=== PATIENT | male | born 1955 | race Caucasian/White ===

== ENCOUNTER 2022-06-08 06:20 | Day surgery (SDC) | payer MEDICARE, OTHER, SELFPAY ==
[2022-06-04 10:36] VITALS: BMI 28.7
--- NOTE | 2022-06-07 09:14 | HO.ANESPROP2 ---
Documented by User: Brenda Peterson NP 06/07/22 11:50 HPI - Anesthesia Eval Consult details Narrative: 66yo M for Colonoscopy T/C with pt 06/07/22 CAD with stent 2006. Follows Dr Hugo yearly, last saw about 3 months ago . No CP/SOB. No recent cardiac testing. [facility] Past Medical History Medical History (Updated 06/04/22 @ 10:32 by Alesha Leger, RN) CAD (coronary artery disease) Diabetes mellitus GERD (gastroesophageal reflux disease) Gout HTN (hypertension) Hyperlipemia Surgical History Surgical History (Updated 06/04/22 @ 10:33 by Alesha Leger RN) History of esophagogastroduodenoscopy (EGD) Hx of colonoscopy Stented coronary artery Social History Social History Patient Tobacco Use Status: Never used Tobacco Are you DNR?: No Advance Directives: No Advance Directives Information Provided: Yes Recently lost weight without trying: No Nutrition Risks: No Nutritional Risk Meds Allergies Allergy/AdvReac Type Severity Reaction Status Date / Time No Known Allergies Allergy Verified 06/07/22 09:18 Home Medications Medication Instructions Recorded Confirmed Last Taken Type atenolol 100 mg tablet 100 mg PO DAILY 06/04/22 06/04/22 06/08/22 History glimepiride 1 mg tablet 1 mg PO DAILY 06/04/22 06/04/22 05/18/22 History lisinopril 20 mg tablet 20 mg PO DAILY 06/04/22 06/04/22 06/08/22 History nitroglycerin 0.4 mg sublingual 0.4 mg sublingual Q5M PRN Chest 06/04/22 06/04/22 Unknown History tablet Pain omeprazole 40 mg capsule,delayed 40 mg PO DAILY 06/04/22 06/04/22 06/07/22 History release simvastatin 20 mg tablet 20 mg PO BEDTIME 06/04/22 06/04/22 06/07/22 History Exam Exam Date and Time: June 07, [id number] Height,Weight and Vital Signs: Height 5 ft 10.5 in Weight 92.079 kg Assessment and Plan Assessment Anesthesia Assessment: Chart Reviewed Documented by User: Maddy Brothers MD 06/08/22 07:34 PMFSH Active Problems Active Problems: Denies recent chest pain. Only on baby aspirin for stent Cardiac Stent x 1 2006 Past Medical History Medical History (Updated 06/04/22 @ 10:32 by Alesha Leger RN) CAD (coronary artery disease) Diabetes mellitus GERD (gastroesophageal reflux disease) Gout HTN (hypertension) Hyperlipemia Family History Family history of problems with anesthesia: No Surgical History Surgical History (Updated 06/04/22 @ 10:33 by Alesha Leger RN) History of esophagogastroduodenoscopy (EGD) Hx of colonoscopy Stented coronary artery History of Problems with Anesthesia: No Social History Social History Patient Tobacco Use Status: Never used Tobacco Are you DNR?: No Advance Directives: No Advance Directives Information Provided: Yes Recently lost weight without trying: No Nutrition Risks: No Nutritional Risk Meds Allergies Allergy/AdvReac Type Severity Reaction Status Date / Time No Known Allergies Allergy Verified 06/07/22 09:18 Home Medications Medication Instructions Recorded Confirmed Last Taken Type atenolol 100 mg tablet 100 mg PO DAILY 06/04/22 06/04/22 06/08/22 History glimepiride 1 mg tablet 1 mg PO DAILY 06/04/22 06/04/22 05/18/22 History lisinopril 20 mg tablet 20 mg PO DAILY 06/04/22 06/04/22 06/08/22 History nitroglycerin 0.4 mg sublingual 0.4 mg sublingual Q5M PRN Chest 06/04/22 06/04/22 Unknown History tablet Pain omeprazole 40 mg capsule,delayed 40 mg PO DAILY 06/04/22 06/04/22 06/07/22 History release simvastatin 20 mg tablet 20 mg PO BEDTIME 06/04/22 06/04/22 06/07/22 History Exam Height,Weight and Vital Signs: Height 5 ft 10.5 in Weight 92.079 kg Vital Signs Temp Pulse Resp BP Pulse Ox O2 Del Method 06/08/22 06:26 97.9 F 66 18 148/76 H 97 Room Air Pertinent Lab Results Pertinent Lab Results: Lab Results 06/08/22 Range/Units 06:37 POC Glucose 133 H (60-115) mg/dL Airway Mallampati Class: III TM Dist: >3cm Neck ROM: Full Denture: Upper and Lower Heart: RRR Lungs: CTAB Assessment and Plan Assessment Anesthesia Assessment: Anesthesia Plan Discussed Final Anesthetic Review Family History of Problems with Anesthesia: No History of Problems with Anesthesia: No NPO: Yes ASA Class: III Final Preanesthetic Review: No Changes in Pt Med Stat, Meds/Allgs Chart Reviewed, Consent Obtained/Reviewed and Anes Risks/Benef Reviewed Patient Risk: Intermediate Procedure Risk: Low Assessment/Block/Sedation in SS: Assess/Block/Sedation-SS Anesthetic Plan Anesthetic Plan: MAC: Disposition: Standard PACU
[2022-06-08 06:26] VITALS: BP 148/76; PULSE 66; RESP 18; TEMP 36.6; O2SAT 97
[2022-06-08 06:42] LABS: Glucose, Whole Blood 133 mg/dL (60-115)
[2022-06-08] MEDS: Lactated Ringers 1,000 ML 100 ML IVCONT (06:55)
--- NOTE | 2022-06-08 07:30 | MHC.SHP ---
Pre-Procedural Eval Section A Date of Service: 06/08/22 Section B Chief Complaint: screening Details of Present Illness: See H*P no changes Relevant Family History (Specify if Yes): No Relevant Social History: None Present Medications: see Short Stay Collaborative assessment Medical History: No relevant PMH History of Previous Operations: Relevant previous surgery/procedure and date(s) Allergies: Allergies Allergy/AdvReac Type Severity Reaction Status Date / Time No Known Allergies Allergy Verified 06/07/22 09:18 Review of Systems Sugical H&P ROS: Negative: Constitution, Cardiovascular, Respiratory, Neurological, Psychiatric, Hem-Onc, Allergic/Immunologic, Gastrointestinal, Genitourinary, Musculoskeletal, Integumentary, Endocrine and Eyes/Ears/Nose/Throat Exam Surgical H&P Exam: Normal: HEENT, Normal: Heart, Normal: Lungs, Normal: Extremities, Normal: Abdomen, Normal: Skin and Normal: Neurological Plan Diagnosis/Plan: Unchanged I have reviewed the history and physical and performed a pertinent physical examination on my patient. No changes have occurred unless specified.
[2022-06-08 08:09] VITALS: BP 128/57; PULSE 68; RESP 14; TEMP 36.7; O2SAT 97
--- NOTE | 2022-06-08 08:12 | PM.OP ---
Brief Operative Note Date of Service: 06/08/22 Surgeon: Paolo Jeffers Anesthesia: MAC Was an Veneer Drier Tailer used for this Procedure?: No Estimated blood loss (mL): 2 Pathology: other Condition: stable Disposition: PACU
[2022-06-08 08:24] VITALS: BP 149/60; PULSE 63; RESP 16; O2SAT 98
[2022-06-08 08:39] VITALS: BP 149/68; PULSE 65; RESP 16; TEMP 36.7; O2SAT 99
--- NOTE | 2022-06-08 09:10 | OP_ITS ---
SURGEON: Paolo Jeffers MD INDICATIONS: Colon cancer screening and prior history of adenomatous colon polyps. PREOPERATIVE DIAGNOSIS: POSTOPERATIVE DIAGNOSIS: PROCEDURE PERFORMED: Colonoscopy to the terminal ileum with biopsy and snare polypectomy. ESTIMATED BLOOD LOSS: COMPLICATIONS: ANESTHESIA: ASSISTANTS: SPECIMENS: MEDICATIONS: Monitored anesthesia care. DESCRIPTION OF PROCEDURE: A history and physical performed. The risks and benefits of the procedure were explained to the patient. Informed consent was obtained. The patient was placed in the left lateral decubitus position. A digital rectal exam was performed and was found to be normal. The Olympus pediatric video colonoscope was introduced into the rectum and advanced to the cecum without difficulty. The cecum was identified by transillumination, palpation, and identification of ileocecal valve. Examination was performed. The scope was removed. He tolerated the procedure well and was taken to recovery in stable condition. The procedure was performed on June 08, 2022. FINDINGS: The terminal ileum was normal. Four polyps were identified and removed using a combination of hot snare polypectomy and biopsy forceps. All were less than 10 mm. These were located in the right colon 65 cm, 40 cm into the rectum. There was moderate sigmoid diverticulosis. There was some stool coating mucosa throughout the colon. This was washed and suctioned as best possible, but did limit the exam slightly for detection of small polyps. Retroflexed examination was normal. IMPRESSION: Colon polyps. RECOMMENDATION: Follow up the biopsy results. MD OSMANI Umana/GARRY / [id number]
== END 2022-06-08 09:05 | disposition home or self-care (01) ==
PROVIDERS: Visit Provider Internal Medicine Gastroenterology
PROC: 0DJD8ZZ Inspection of Lower Intestinal Tract, Via Natural or Artificial Opening Endoscopic (ICD-10-PCS; CPT 45378; principal; 2022-06-08 07:30)
DX: Z12.11 Encounter for screening for malignant neoplasm of colon (principal); D12.2 Benign neoplasm of ascending colon; D12.4 Benign neoplasm of descending colon; D12.5 Benign neoplasm of sigmoid colon; K62.1 Rectal polyp; I25.10 Atherosclerotic heart disease of native coronary artery without angina pectoris; Z98.61 Coronary angioplasty status; I10 Essential (primary) hypertension; E11.9 Type 2 diabetes mellitus without complications; K21.9 Gastro-esophageal reflux disease without esophagitis; M10.9 Gout, unspecified; E78.5 Hyperlipidemia, unspecified; Z79.84 Long term (current) use of oral hypoglycemic drugs; Z79.899 Other long term (current) drug therapy
CPT/HCPCS: 45385; 45380; 82947; 88305

== ENCOUNTER 2023-08-21 11:52 | Day surgery (SDC) | payer MEDICARE, OTHER, SELFPAY ==
[2023-08-19 15:06] VITALS: BMI 30.4
--- NOTE | 2023-08-20 11:03 | HO.ANESPROP2 ---
Documented by User: Brenda Peterson NP 08/20/23 11:42 HPI - Anesthesia Eval Consult details Narrative: 67yo M for Upper Endoscopy ETOH Cirrhosis. Per GI H&P, mild ascites, hyponatremic. Labs from December with low plts. CAD s/p stent 2006 (no asa d/t low plt count), afib (No OAC). Follows [facility] cardiology. Last office visit 05/2023 [facility] Past Medical History Medical History (Updated 08/19/23 @ 14:49 by Shanta Gilliland RN) Cirrhosis Afib Gout CAD (coronary artery disease) Hyperlipemia HTN (hypertension) Diabetes mellitus GERD (gastroesophageal reflux disease) Family History Family history of problems with anesthesia: No Surgical History Surgical History (Updated 08/19/23 @ 14:48 by Shanta Gilliland RN) Stented coronary artery Hx of colonoscopy History of esophagogastroduodenoscopy (EGD) History of Problems with Anesthesia: No Social History Social History Patient Tobacco Use Status: Never used Tobacco Meds Allergies Allergy/AdvReac Type Severity Reaction Status Date / Time No Known Allergies Allergy Verified 06/07/22 09:18 Home Medications Medication Instructions Recorded Confirmed Last Taken Type atenolol 100 mg tablet 100 mg PO DAILY 06/04/22 08/19/23 06/08/22 History glimepiride 1 mg tablet 1 mg PO DAILY 06/04/22 08/19/23 05/18/22 History lisinopril 20 mg tablet 20 mg PO DAILY 06/04/22 08/19/23 06/08/22 History nitroglycerin 0.4 mg sublingual 0.4 mg sublingual Q5M PRN Chest 06/04/22 08/19/23 Unknown History tablet Pain omeprazole 40 mg capsule,delayed 40 mg PO DAILY 06/04/22 08/19/23 06/07/22 History release simvastatin 20 mg tablet 20 mg PO BEDTIME 06/04/22 08/19/23 06/07/22 History allopurinol 100 mg tablet 100 mg PO DAILY 08/19/23 08/19/23 Unknown History cholecalciferol (vitamin D3) 125 250 mcg PO DAILY 08/19/23 08/19/23 Unknown History mcg (5,000 unit) tablet (Vitamin D3) indomethacin 50 mg capsule 50 mg PO DAILY PRN gout pain 08/19/23 08/19/23 Unknown History torsemide 20 mg tablet 40 mg PO BID 08/19/23 08/19/23 Unknown History vitamin B complex-vitamin C-folic 1 tab PO DAILY 08/19/23 08/19/23 Unknown History acid 0.8 mg tablet Exam Height,Weight and Vital Signs: Height 5 ft 10.5 in Weight 97.522 kg Narrative Narrative: EKG in ED 03/2023 afib with rvr @ 105 Mod volt criteria for LVH, may be nml variant NM Stress 10/2022 No evidence of myocardial ischemia or previous myocardial infarct Nml LV size and funtion ECHO 03/2023 LV chamber size is nml Mild concentric LVH EF 55-65% RV is nml in size and function No significant valve disease Assessment and Plan Assessment Anesthesia Assessment: Chart Reviewed Final Anesthetic Review Family History of Problems with Anesthesia: No History of Problems with Anesthesia: No Documented by User: Prabhjot Mendoza MD 08/21/23 13:52 [facility] Past Medical History Medical History (Updated 08/19/23 @ 14:49 by Shanta Gilliland RN) Cirrhosis Afib Gout CAD (coronary artery disease) Hyperlipemia HTN (hypertension) Diabetes mellitus GERD (gastroesophageal reflux disease) Surgical History Surgical History (Updated 08/19/23 @ 14:48 by Shanta Gilliland RN) Stented coronary artery Hx of colonoscopy History of esophagogastroduodenoscopy (EGD) Social History Social History Patient Tobacco Use Status: Never used Tobacco Meds Allergies Allergy/AdvReac Type Severity Reaction Status Date / Time No Known Allergies Allergy Verified 06/07/22 09:18 Home Medications Medication Instructions Recorded Confirmed Last Taken Type atenolol 100 mg tablet 100 mg PO DAILY 06/04/22 08/19/23 06/08/22 History glimepiride 1 mg tablet 1 mg PO DAILY 06/04/22 08/19/23 05/18/22 History lisinopril 20 mg tablet 20 mg PO DAILY 06/04/22 08/19/23 06/08/22 History nitroglycerin 0.4 mg sublingual 0.4 mg sublingual Q5M PRN Chest 06/04/22 08/19/23 Unknown History tablet Pain omeprazole 40 mg capsule,delayed 40 mg PO DAILY 06/04/22 08/19/23 06/07/22 History release simvastatin 20 mg tablet 20 mg PO BEDTIME 06/04/22 08/19/23 06/07/22 History allopurinol 100 mg tablet 100 mg PO DAILY 08/19/23 08/19/23 Unknown History cholecalciferol (vitamin D3) 125 250 mcg PO DAILY 08/19/23 08/19/23 Unknown History mcg (5,000 unit) tablet (Vitamin D3) indomethacin 50 mg capsule 50 mg PO DAILY PRN gout pain 08/19/23 08/19/23 Unknown History torsemide 20 mg tablet 40 mg PO BID 08/19/23 08/19/23 Unknown History vitamin B complex-vitamin C-folic 1 tab PO DAILY 08/19/23 08/19/23 Unknown History acid 0.8 mg tablet Exam Pertinent Lab Results Pertinent Lab Results: Reviewed Airway Mallampati Class: I TM Dist: >3cm Neck ROM: Full Denture: Upper and Lower Heart: ok Lungs: ok Assessment and Plan Assessment Anesthesia Assessment: Anesthesia Plan Discussed Final Anesthetic Review NPO: Yes ASA Class: III Final Preanesthetic Review: No Changes in Pt Med Stat, Meds/Allgs Chart Reviewed, Consent Obtained/Reviewed and Anes Risks/Benef Reviewed Patient Risk: High Procedure Risk: Intermediate Anesthetic Plan Anesthetic Plan: MAC: and Agree w/ Assess. and Plan Disposition: Standard PACU
[2023-08-21 13:02] LABS: Hematocrit 32.9 % (42.0-52.0); Hemoglobin 11.1 g/dl (14.0-18.0); Mean Corpuscular HGB Conc 33.7 g/dl (31.0-36.0); Mean Corpuscular Hemoglobin 30.7 pg (27.0-33.0); Mean Corpuscular Volume 90.9 fL (80.0-98.0); Mean Platelet Volume 11.7 fL (9.4-12.4); Red Blood Count 3.62 X10*6/uL (4.60-5.80); Red Cell Distribution Width 21.2 % (11.0-16.0); White Blood Count 4.3 X10*3/uL (4.8-10.8)
[2023-08-21 13:03] LABS: INTERNATIONAL NORM RATIO 1.3 (0.9-1.1); Prothrombin Time 15.4 SEC (11.1-13.3)
[2023-08-21 13:05] VITALS: BP 141/62; PULSE 57; RESP 16; TEMP 36.8; O2SAT 96
[2023-08-21] MEDS: Lactated Ringers 1,000 ML 100 ML IVCONT (13:06)
[2023-08-21 13:09] LABS: Alanine Aminotransferase 24 U/L (0-40); Alkaline Phosphatase 122 U/L (39-117); Anion Gap 12 (12-20); Aspartate Amino Transferase 41 U/L (5-37); Bilirubin Total 2.4 mg/dL (0.0-1.0); Blood Urea Nitrogen 11 mg/dL (9-16); Calcium 8.8 mg/dL (8.4-10.2); Carbon Dioxide 29 mmol/L (22-29); Chloride 102 mmol/L (96-108); Creatinine Clr Calc Pharmacy 99.7; Estimated Glomerular Filt Rate > 60; Glucose Fasting 129 mg/dL (60-99); Potassium 3.7 mmol/L (3.3-5.1); Sodium 139 mmol/L (135-145)
[2023-08-21 13:09] LABS: Glucose, Whole Blood 118 mg/dL (60-115)
[2023-08-21 13:14] LABS: Platelet Count 59 X10*3/uL (160-400)
--- NOTE | 2023-08-21 13:45 | MHC.SHP ---
Pre-Procedural Eval Section A Date of Service: 08/21/23 The patient is an INPATIENT: No Changes since office visit: No Cold of Flu in the past 2 weeks, No New Medical Problems, No Changes in Medication and No Patient answered all questions The History & Physical has been completed within 30 days and I have reviewed it.: Yes Section B Chief Complaint: Unspecified cirrhosis of liver Allergies: Allergies Allergy/AdvReac Type Severity Reaction Status Date / Time No Known Allergies Allergy Verified 06/07/22 09:18 Plan I have reviewed the history and physical and performed a pertinent physical examination on my patient. No changes have occurred unless specified. Time Spent With Patient Time: Total time managing care of this patient today ____ minutes.
[2023-08-21 14:19] VITALS: BP 126/55; PULSE 57; RESP 18; TEMP 36.4; O2SAT 98
[2023-08-21 14:50] VITALS: BP 112/62; PULSE 57; RESP 18; TEMP 36.4; O2SAT 100
--- NOTE | 2023-08-21 18:33 | OP_ITS ---
DATE OF SERVICE: 08/21/2023 SURGEON: Paolo Jeffers MD INDICATIONS: Cirrhosis. PREOPERATIVE DIAGNOSIS: POSTOPERATIVE DIAGNOSIS: PROCEDURE PERFORMED: Upper endoscopy with biopsy. ESTIMATED BLOOD LOSS: COMPLICATIONS: ANESTHESIA: Monitored anesthesia care. ASSISTANTS: SPECIMENS: DESCRIPTION OF PROCEDURE: A history and physical were performed. The risks and benefits of the procedure were explained to the patient. Informed consent was obtained. The patient was placed in the left lateral decubitus position. The Olympus video gastroscope was introduced into the esophagus, stomach, and duodenum. Examination was performed, and the scope was removed. He tolerated the procedure well and was returned to recovery in stable condition. FINDINGS: 1. Esophagus. The esophagus showed 3 chains of grade 1-2 varices extending from the EG junction at 42 cm up to about 32 cm. There were no stigmata of recent hemorrhage. 2. Stomach. Stomach showed very mild changes of portal hypertensive gastropathy. There was slight cobblestoning. No bleeding was identified. Biopsies were obtained from the antrum. 3. Duodenum, the bulb and second portion were normal. IMPRESSION: 1. Esophageal varices. 2. Portal hypertensive gastropathy. RECOMMENDATIONS: 1. Follow up the biopsy results. 2. Followup office visit. MD OSMANI Umana/GARRY / [id number]
== END 2023-08-21 15:44 | disposition home or self-care (01) ==
PROVIDERS: Nurse Practitioner; PCP Internal Medicine; Visit Provider Internal Medicine Gastroenterology
PROC: 0DJ08ZZ Inspection of Upper Intestinal Tract, Via Natural or Artificial Opening Endoscopic (ICD-10-PCS; CPT 43235; principal; 2023-08-21 13:50)
DX: K74.60 Unspecified cirrhosis of liver (principal); R18.8 Other ascites; I85.10 Secondary esophageal varices without bleeding; K76.6 Portal hypertension; K31.89 Other diseases of stomach and duodenum; D64.9 Anemia, unspecified; E11.9 Type 2 diabetes mellitus without complications; I10 Essential (primary) hypertension; I48.91 Unspecified atrial fibrillation; E78.5 Hyperlipidemia, unspecified; I25.10 Atherosclerotic heart disease of native coronary artery without angina pectoris; Z95.5 Presence of coronary angioplasty implant and graft; M10.9 Gout, unspecified; E87.1 Hypo-osmolality and hyponatremia; Z79.82 Long term (current) use of aspirin; Z79.84 Long term (current) use of oral hypoglycemic drugs; Z79.899 Other long term (current) drug therapy
CPT/HCPCS: 43239; 36415; 80053; 82947; 85027; 85610; 88305; 88342; J2704

== ENCOUNTER 2024-06-18 16:32 | Outpatient (REF) | payer MEDICARE, OTHER, SELFPAY ==
[2024-06-18 17:03] LABS: Hematocrit 30.4 % (42.0-52.0); Hemoglobin 10.9 g/dl (14.0-18.0); Mean Corpuscular HGB Conc 35.9 g/dl (31.0-36.0); Mean Corpuscular Hemoglobin 36.1 pg (27.0-33.0); Mean Corpuscular Volume 100.7 fL (80.0-98.0); Mean Platelet Volume 10.3 fL (9.4-12.4); Red Blood Count 3.02 X10*6/uL (4.60-5.80); Red Cell Distribution Width 13.7 % (11.0-16.0); White Blood Count 4.6 X10*3/uL (4.8-10.8)
[2024-06-18 17:08] LABS: INTERNATIONAL NORM RATIO 1.2 (0.9-1.1); Prothrombin Time 14.5 SEC (10.9-12.4)
[2024-06-18 17:20] LABS: Alanine Aminotransferase 19 U/L (0-40); Albumin Level 3.3 g/dL (3.5-5.0); Alkaline Phosphatase 128 U/L (39-117); Aspartate Amino Transferase 36 U/L (5-37); Bilirubin Direct 0.8 mg/dL (0.0-0.5); Bilirubin Total 2.1 mg/dL (0.0-1.0); Platelet Count 63 X10*3/uL (160-400); Total Protein 6.7 g/dL (6.5-8.0)
[2024-06-25 02:23] LABS: FIB-ALT 17 U/L (9-46); FIB-Alpha-2-Macroglobulin 263 mg/dL (106-279); FIB-Apolipoprotein A1 138 mg/dL (94-176); FIB-GGT 73 U/L (3-70); FIB-Haptoglobin <8 mg/dL (43-212); FIB-Total Bilirubin 1.9 mg/dL (0.2-1.2); Liver Fibrosis Score 0.95; Liver Fibrosis Stage F4; Nec Inflam Act Grade A0; Nec Inflam Act Score 0.15; Reference ID 5156400
== END 2024-06-18 16:33 | disposition home or self-care (01) ==
LOC: HO.LAB 16:32
PROVIDERS: PCP Internal Medicine; Visit Provider Internal Medicine Gastroenterology
DX: K74.60 Unspecified cirrhosis of liver (principal); K21.9 Gastro-esophageal reflux disease without esophagitis
CPT/HCPCS: 36415; 80076; 81596; 85027; 85610

== ENCOUNTER 2025-05-18 07:23 | Day surgery (SDC) | payer MEDICARE, OTHER, SELFPAY ==
--- OUTSIDE RECORDS SUMMARY | 2025-04-06 10:21 | XMS_ITS | Patient Health Record ---
Author Organization [facility] Address [address] [place] [address] Care Team Providers Care Procurement Services Manager Name Role Phone Rosi DOMINGUEZ, Netta Primary Care Provider Paolo Lynn Jr Unavailable Paolo Jeffers Unavailable Unavailable Allergies No Known Allergies Results Component Value Reference Range Notes Liver Fibrosis Pnl Reviewed date:06/26/2024 07:37:17 AM Interpretation: Performing Lab:[facility], [address] [place] [phone] Notes/Report: Liver Fibrosis Score 0.95 Liver Fibrosis Stage F4 Liver Fibrosis Interpretation SEE NOTE severe fibrosis Fibro Test Score (f) Metavir Score f>=0 and f<=0.21 : F0 (no fibrosis) f>0.21 and f<=0.27 : F0-F1 (no fibrosis) f>0.27 and f<=0.31 : F1 (minimal fibrosis) f>0.31 and f<=0.48 : F1-F2 (minimal fibrosis) f>0.48 and f<=0.58 : F2 (moderate fibrosis) f>0.58 and f<=0.72 : F3 (advanced fibrosis) f>0.72 and f<=0.74 : F3-F4 (advanced fibrosis) f>0.74 and f<=1.00 : F4 (severe fibrosis) Nec Inflam Act Score 0.15 Nec Inflam Act Grade A0 Nec Inflam Act Interpretation SEE NOTE no activity ActiTest Score (a) Metavir Score a>=0 and a<=0.17 : A0 (no activity) a>0.17 and a<=0.29 : A0-A1 (no activity) a>0.29 and a<=0.36 : A1 (minimal activity) a>0.36 and a<=0.52 : A1-A2 (minimal activity) a>0.52 and a<=0.60 : A2 (significant activity) a>0.60 and a<=0.62 : A2-A3 (significant activity) a>0.62 and a<=1.00 : A3 (severe activity) XSR-Msaap-2-Macroglobulin 263 106-279 mg/dL FIB-Haptoglobin <8 43-212 mg/dL Check if haemolysis as bilirubin is high and haptoglobin low. FIB-Apolipoprotein A1 138 94-176 mg/dL FIB-Total Bilirubin 1.9 0.2-1.2 mg/dL Check if haemolysis as bilirubin is high and haptoglobin low. FIB-GGT 73 3-70 U/L FIB-ALT 17 9-46 U/L Reference ID [id number] Footnote SEE NOTE The reliability of results is dependent on compliance with the preanalytical and analytical conditions recommended by [employer]. The tests have to be deferred for: acute hemolysis, acute hepatitis, acute inflammation, extra hepatic cholestasis. The advice of a specialist should be sought for interpretation in chronic hemolysis and Gilbert's syndrome. The test interpretation is not validated in liver transplant patients. Isolated extreme values of one of the components should lead to caution in interpreting the results. In case of discordance between a biopsy result and a test, it is recommended to seek the advice of a specialist. The causes of these discordances could be due to a flaw of the test or to a flaw in the biopsy: i.e. a liver biopsy has a 33% variability rate for one fibrosis stage. FibroTest is interpretable for chronic hepatitis B and C, alcoholic and non alcoholic steatosis. ActiTest is interpretable for chronic hepatitis B and C. The performance characteristics have been determined by [facility]. It has not been cleared or approved by the U.S. Food and Drug Administration. Performance characteristics refer to the analytical performance of the test. [employer], the associated logo, [employer] and all associated [employer] concepcion are the registered trademarks of [employer]. All third green party concepcion - (R) and (TM) - are the property of their respective owners. (C) 0909-0860 [employer]. All rights reserved. THIS TEST WAS PERFORMED AT: [employer]/[facility] [address] [place] [address] SAMY ALVARES MD,PHD,TAMIE Complete Blood Count no Diff Reviewed date:06/26/2024 07:34:08 AM Interpretation: Performing Lab:[facility], [address] [place] [phone] Notes/Report: White Blood Count 4.6 4.8-10.8 X10*3/uL Red Blood Count 3.02 4.60-5.80 X10*6/uL Hemoglobin 10.9 14.0-18.0 g/dl Hematocrit 30.4 42.0-52.0 % Mean Corpuscular Volume 100.7 80.0-98.0 fL Mean Corpuscular Hemoglobin 36.1 27.0-33.0 pg Mean Corpuscular HGB Conc 35.9 31.0-36.0 g/dl Red Cell Distribution Width 13.7 11.0-16.0 % Platelet Count 63 160-400 X10*3/uL Mean Platelet Volume 10.3 9.4-12.4 fL NRBC Pct Auto 0.0 0.0-0.2 /100WBC NRBC Abs Auto 0.000 0.0-0.012 X10*3/uL Prothrombin Time INR Reviewed date:06/26/2024 07:36:43 AM Interpretation: Performing Lab:[facility], [address] [place] [phone] Notes/Report: Prothrombin Time 14.5 10.9-12.4 SEC INTERNATIONAL NORM RATIO 1.2 0.9-1.1 INTERNATIONAL NORMALIZED RATIO (INR) REFERENCE RANGES Reference Range For patients not on anticoagulant therapy: 0.9 - 1.1 INR ranges for oral anticoagulant therapy: For prevention and treatment of venous thrombosis and pulmonary embolism: 2.0 - 3.0 For acute myocardial infarction with aspirin therapy: 2.0 - 3.0 For acute myocardial infarction without aspirin therapy: 3.0 - 4.0 For patients with mechanical prosthetic heart valves: 2.5 - 3.5 Liver Panel Reviewed date:06/26/2024 07:36:34 AM Interpretation: Performing Lab:[facility], [address] [place] [phone] Notes/Report: Bilirubin Total 2.1 0.0-1.0 mg/dL Bilirubin Direct 0.8 0.0-0.5 mg/dL Aspartate Amino Transferase 36 5-37 U/L Alanine Aminotransferase 19 0-40 U/L Total Protein 6.7 6.5-8.0 g/dL Albumin Level 3.3 3.5-5.0 g/dL Alkaline Phosphatase 128 39-117 U/L Reason For Referral No Information Medications Medication SIG (Take, Route, Frequency, Duration) Notes Start Date End Date Status Folic Acid Xtra Acti ve Mounjaro 5 MG/0.5ML Subcutaneous for 84 Days Active Mounjaro 5 MG/0.5ML Subcutaneous for 84 Active Allopurinol 100 MG 1 tablet Orally Once a day for 30 day(s) Active Aspirin 81 81 MG 1 tablet Orally Once a day for 30 day(s) Active Cholecalciferol 250 MCG (12948 UT) as directed Orally Active Repatha SureClick 140 MG/ML Subcutaneous for 84 Days Active One Touch Delica Lancets Active Torsemide 20 MG Oral for 90 Days Active Hydrocortisone 10 MG 1 tablet with food or milk Orally every 12 hrs for 30 day(s) Active Atenolol 100 MG TAKE 1 TABLET BY AYANNA TH EVERY DAY Oral for 90 Active Magnesium Active OneTouch Verio - USE TO TEST 2 TIMES DAILY In Vitro for 50 Active Omeprazole 40 MG Oral for 90 A ctive Nitroglycerin 0.4 MG as directed Sublingual Active Indomethacin ER 75 MG 1 capsule with jose alfredo d Orally Once a day for 30 day(s) Active Torsemide 20 MG as directed Orally Active Lisinopril 20 MG TAKE 1 TABLET BY AYANNA TH EVERY DAY Oral for 90 Active Immunizations Vaccine Route Administration Date Status Comme nts Influenza Unknown 03/19/2022 Refused Influenza Unknown 07/29/2023 Refused Influenza Unknown 11/18/2023 Refused Social History Tobacco Use: Social History Observation Description Date Details (start date - stop date) Never Smoker NA - NA Tobacco Use/Smoking Question Answer Notes Patient is a nonsmoker AUDIT-C (Standard) Question Answer Notes Did you have a drink containing alcohol in the p ast year? No Points 0 Interpretation Negative Problems Problem Type SNOMED Code ICD Code Onset Dates Problem Status W/U Status Risk Notes Problem 067775302 Colon cancer screening (Z12.11) Active confirmed Problem Oesophageal varices without bleeding (90736746) Secondary esophageal varices without bleeding (I85.10) Active confirmed Problem 88829754 Unspecified cirrhosis of liver (K74.60) Active confirmed Problem Portal hypertension (51832060) Portal hypertension (K76.6) Active confirmed Problem 901070381 Other ascites (R18.8) Active confirmed Problem 923051196 Gastroesophageal reflux disease without esophagitis (K21.9) Active confirmed Problem Diverticulosis of colon (073397426) Diverticulosis of colon (K57.30) Active confirmed Problem Pancytopenia (D61.818) Active confirmed Vital Signs Temperature 97.1 degrees Fahrenheit 12/16/2024 Blood pressure diastolic 01 mm Hg 12/16/2024 Height 70.5 in 12/16/2024 Blood pressure systolic 001 mm Hg 12/16/2024 Weight 190.4 lbs 12/16/2024 BMI 26.93 kg/m2 12/16/2024 Encounters Encounter Location Date Provider Diagnosis [facility] [address] [place] [phone] 06/18/2024 Paolo Jeffers Jr Unspecified cirrhosis of liver K74.60 and Gastroesophageal reflux disease without esophagitis K21.9 [facility] [address] [place] [phone] 12/16/2024 Paolo Jeffers Jr Unspecified cirrhosis of liver K74.60 ; Secondary esophageal varices without bleeding I85.10 and Colon cancer screening Z12.11 [facility] [address] [place] [phone] 06/26/2024 Paolo Jeffers Jr [facility] [address] [place] [phone] 12/30/2024 Paolo Jeffers Jr [facility] [address] [place] [id number] 01/01/2025 Paolo Jeffers Jr Pancytopenia D61.818 [facility] [address] [place] [phone] 01/06/2025 Paolo Jeffers Jr Assessments Encounter Date Diagnosis (ICD Code) Assessment Notes Treatment Notes Treatment Clinical Notes Section Notes 06/18/2024 Unspecified cirrhosis of liver (ICD-10 - K74.60) Liver disease - resources material was printed We discussed cirrhosis today. We discussed gastroesophageal reflux disease today. We recommended he continue omeprazole. Followup laboratory testing of liver function tests and fibrosis testing will be arranged. Followup office visit in 6 months. 06/18/2024 Gastroesophageal reflux disease without esophagitis (ICD-10 - K21.9) We discussed cirrhosis today. We discussed gastroesophageal reflux disease today. We recommended he continue omeprazole. Followup laboratory testing of liver function tests and fibrosis testing will be arranged. Followup office visit in 6 months. 12/16/2024 Unspecified cirrhosis of liver (ICD-10 - K74.60) Liver disease - resources material was printed Currently, he is doing well. He will be due for follow-up colonoscopy and this will be arranged. He will have lab work to update his liver function tests, and ultrasound imaging for follow-up of his cirrhosis. Reflux symptoms are well-controlled on omeprazole 40 mg daily and this will be continued. Endoscopy for variceal surveillance will be arranged at the same time of his colonoscopy. He is aware of risks and benefits and agrees to proceed. He will stop indomethacin and aspirin 1 week before the procedures. 01/01/2025 Pancytopenia (ICD-10 - D61.818) 12/16/2024 Secondary esophageal varices without bleeding (ICD-10 - I85.10) Currently, he is doing well. He will be due for follow-up colonoscopy and this will be arranged. He will have lab work to update his liver function tests, and ultrasound imaging for follow-up of his cirrhosis. Reflux symptoms are well-controlled on omeprazole 40 mg daily and this will be continued. Endoscopy for variceal surveillance will be arranged at the same time of his colonoscopy. He is aware of risks and benefits and agrees to proceed. He will stop indomethacin and aspirin 1 week before the procedures. 12/16/2024 Colon cancer screening (ICD-10 - Z12.11) Currently, he is doing well. He will be due for follow-up colonoscopy and this will be arranged. He will have lab work to update his liver function tests, and ultrasound imaging for follow-up of his cirrhosis. Reflux symptoms are well-controlled on omeprazole 40 mg daily and this will be continued. Endoscopy for variceal surveillance will be arranged at the same time of his colonoscopy. He is aware of risks and benefits and agrees to proceed. He will stop indomethacin and aspirin 1 week before the procedures. Plan Of Treatment Pending Test Test Name Order Date LIVER PROFILE 06/18/2024 LIVER PROFILE 11/18/2023 LIVER PROFILE 07/29/2023 LIVER PROFILE 12/16/2024 IRON + IBC (FE) 01/01/2025 FERRITIN 01/01/2025 B12 01/01/2025 FOLATE 01/01/2025 CBC with MANUAL DIFFERENTIAL 11/18/2023 CBC w/o DIFF 07/29/2023 CBC w/o DIFF 12/16/2024 CBC w/o DIFF 06/18/2024 CBC w/o DIFF 01/01/2025 PROTHROMBIN TIME (PT, INR) 07/29/2023 PROTHROMBIN TIME (PT, INR) 12/16/2024 PROTHROMBIN TIME (PT, INR) 06/18/2024 PROTHROMBIN TIME (PT, INR) 11/18/2023 MITOCHONDRIAL AB 07/29/2023 SMOOTH MUSCLE ANTIBODIES 07/29/2023 US ABD 12/16/2024 Liver Fibrosis Pnl 11/18/2023 Liver Fibrosis Pnl 07/29/2023 ZAYDA Reflex Titer and Pattern 07/29/2023 Future Test Test Name Order Date COLONOSCOPY 03/19/2022 UPPER GI ENDOSCOPY 07/29/2023 US ABD 11/18/2023 UPPER GI ENDOSCOPY 12/16/2024 COLONOSCOPY 12/16/2024 Next Appt Details Provider Name:Paolo calzada Jr, 05/18/2025 08:20:00 AM, [address] [place] [address] , [place], [place], [id number], Insurance Providers Payer Name Payer Address Payer Phone Subscriber Number Group Number Insured Name Patient Relationship to Insured Coverage Start Date Coverage End Date MEDICARE OF [facility] [address] [place] [address] [id number] [phone] [id number] TUNG MILLAN Self - patient is the insured [facility] [address] [place] [phone] [id number] TUNG MILLAN Self - patient is the insured Medical (General) History Medical History History ICD Code Diabetes mellitus type 2 Hypertension Hyperlipidemia Coronary artery disease Gout Atrial fibrillation Hyponatremia Cirrhosis Surgical History Surgery Date(Month/Year) RCA stent 2006
--- OUTSIDE RECORDS SUMMARY | 2025-04-06 10:21 | XMS_ITS | Clinical Summary ---
Author Organization [facility] Address [address] [place] [address] Care Team Providers Care Associate Professor Of Surgery Name Role Phone Pcp, No Primary Care Provider [phone] Immunizations Name Administration Dates Next Due Fluzone Trivalent High Dose (65+ years) 08/28/20 22 Social History Tobacco Use Types Packs/Day Years Used Date Smoking Tobacco: Never Assessed Sex and Gender Information Value Date Recorded Sex Assigned at Not on file Legal Sex Male 9:21 AM EST Gender Identity Not on file Sexual Orientation Not on file Plan of Treatment Health Maintenance Due Date Last Done Comments Depression: Screening Annual ly using PHQ-2/9 in Adults 18 yrs or above (or HM Modifier)([facility]) 1972 Hepatitis C Virus Infection in Adolescents and Adults: Screening (or Modifier) ([facility]) 1972 SDAK Screening Reminder: Beata esposito for all adults ([facility]) 1972 Tobacco Smoking Cessation: i n Adults excluding Women: Behavioral and Pharmacotherapy Interventions ([facility]) 1972 DTaP/Tdap/Td Vaccines ([facility]) (1 - Tdap) 1973 Colorectal Cancer: FLEXIBLE SIGMOIDOSCOPY Screening every 5 yrs 1999 Colorectal Cancer: Fecal Imm unochemical Test (FIT) Annually [facility] 1999 Colorectal Cancer: High-sens itivity gFOBT Screening Annually [facility] 1999 Colorectal Cancer: Stool Col oguard Screening every 3 yrs 1999 Colorectal Cancer:CT Colonog ethan Screening every 5 yrs 1999 Pneumococcal Vaccination Scr eening: Patients 50+ yrs of age ([facility]) (1 of 1 - PCV) 2004 Zoster/Shingles Vaccine Seri es Screening: Adults aged 18+ yrs (or HM Modifiers)([facility]) (1 of 2) 2004 COVID-19 Vaccine Screening: Initial Series and Booster Status ([facility]) (2023- season) 2024 Flu Vaccination: Ages 65+: Y early High Dose Recommended (or Modifier)([facility]) 04/09/2025 08/28/2022 RSV Vaccines (1 - 1-dose 75+ series) 2029 Colorectal Cancer Screening 45 -75 Yrs (or HM Modifier) 06/08/2032 Colorectal Cancer: COLONOSCO PY Screening every 10 yrs (or Modifier) 06/08/2032 06/08/2022, 06/08/2022 Medical Devices Not on file Insurance MEDICARE [facility] Care Teams Associate Professor Of Surgery Relationship Specialty Start Date End Date Pcp, No PCP - General Family Medicine 08/28/22
[2025-05-14 14:43] VITALS: BMI 26.9
[2025-05-18 08:26] VITALS: BP 128/57; PULSE 67; RESP 16; TEMP 36.5; O2SAT 100
[2025-05-18 08:27] LABS: Glucose, Whole Blood 101 mg/dL (60-115)
[2025-05-18] MEDS: Lactated Ringers 1,000 ML 100 ML IVCONT (08:27)
--- NOTE | 2025-05-18 08:30 | HO.ANESPROP2 ---
Documented by User: Brenda Peterson NP 05/17/25 09:31 HPI - Anesthesia Eval Consult details Narrative: 69yo M for Upper Endoscopy and Colonoscopy ETOH Cirrhosis. Previous EGD 2022 with Grade 1&2 nonbleeding varices. Per GI note, no decompensation since last eval 06/2024. Torsemide Cardiac optimized. CAD s/p stent 2006 (asa 81mg), afib (No OAC). Follows [facility] cardiology. Last office visit 05/2023 Anesthesia Pre-Procedure Meds Is the patient on any of the following meds?: GLP1/DPP4 PMFSH Past Medical History Medical History Esophageal varices without bleeding Cirrhosis Afib Gout CAD (coronary artery disease) Hyperlipemia HTN (hypertension) Diabetes mellitus GERD (gastroesophageal reflux disease) Family History Family history of problems with anesthesia: No Surgical History Surgical History (Updated 08/19/23 @ 14:48 by Shanta Gilliland RN) Stented coronary artery Hx of colonoscopy History of esophagogastroduodenoscopy (EGD) History of Problems with Anesthesia: No Social History Social History Patient Tobacco Use Status: Never used Tobacco Use of substances other than those prescribed or required for medical reasons: No Advance Directives: No Advance Directives Information Provided: Yes Meds Allergies Allergy/AdvReac Type Severity Reaction Status Date / Time amlodipine Allergy Swelling Verified 05/14/25 14:48 doxycycline Allergy Unknown Verified 05/14/25 14:48 Home Medications ?Medication ?Instructions ?Recorded ?Confirmed ?Last Taken ?Type atenolol 100 mg tablet 100 mg PO DAILY 06/04/22 05/14/25 06/08/22 History lisinopril 20 mg tablet 20 mg PO DAILY 06/04/22 05/14/25 06/08/22 History nitroglycerin 0.4 mg sublingual 0.4 mg sublingual Q5M PRN Chest 06/04/22 05/14/25 Unknown History tablet Pain omeprazole 40 mg capsule,delayed 40 mg PO DAILY 06/04/22 05/14/25 06/07/22 History release allopurinol 100 mg tablet 100 mg PO DAILY 08/19/23 05/18/25 05/18/25 07:00 History cholecalciferol (vitamin D3) 125 250 mcg PO DAILY 08/19/23 05/14/25 Unknown History mcg (5,000 unit) tablet (Vitamin D3) indomethacin 50 mg capsule 75 mg PO DAILY PRN gout pain 08/19/23 05/14/25 Unknown History torsemide 20 mg tablet 20 mg PO BID 08/19/23 05/14/25 Unknown History aspirin 81 mg tablet,delayed 81 mg PO DAILY 05/14/25 05/14/25 Unknown History release evolocumab 140 mg/mL subcutaneous 140 mg subcut Q2W 05/14/25 05/14/25 Unknown History pen injector (Repnael Balick) folic acid 1 mg tablet 1 mg PO DAILY 05/14/25 05/14/25 Unknown History hydrocortisone 10 mg tablet 10 mg PO BID 05/14/25 05/14/25 Unknown History tirzepatide 7.5 mg/0.5 mL 7.5 mg subcut QWEEK 05/14/25 05/14/25 Unknown History subcutaneous pen injector (Mounjaro) Exam Height,Weight and Vital Signs: Height 5 ft 10.5 in Weight 86.183 kg Pertinent Lab Results Pertinent Lab Results: Narrative Narrative: EKG in ED 03/2023 afib with rvr @ 105 Mod volt criteria for LVH, may be nml variant NM Stress 10/2022 No evidence of myocardial ischemia or previous myocardial infarct Nml LV size and funtion ECHO 03/2023 LV chamber size is nml Mild concentric LVH EF 55-65% RV is nml in size and function No significant valve disease Assessment and Plan Assessment Anesthesia Assessment: Chart Reviewed Final Anesthetic Review Family History of Problems with Anesthesia: No History of Problems with Anesthesia: No Documented by User: Felisha Cali DO 05/18/25 08:31 HPI - Anesthesia Eval Anesthesia Pre-Procedure Meds Is the patient on any of the following meds?: GLP1/DPP4 PMFSH Past Medical History Medical History Esophageal varices without bleeding Cirrhosis Afib Gout CAD (coronary artery disease) Hyperlipemia HTN (hypertension) Diabetes mellitus GERD (gastroesophageal reflux disease) Family History Family history of problems with anesthesia: No Surgical History Surgical History (Updated 08/19/23 @ 14:48 by Shanta Gilliland RN) Stented coronary artery Hx of colonoscopy History of esophagogastroduodenoscopy (EGD) History of Problems with Anesthesia: No Social History Social History Patient Tobacco Use Status: Never used Tobacco Use of substances other than those prescribed or required for medical reasons: No Advance Directives: No Advance Directives Information Provided: Yes Meds Allergies Allergy/AdvReac Type Severity Reaction Status Date / Time amlodipine Allergy Swelling Verified 05/14/25 14:48 doxycycline Allergy Unknown Verified 05/14/25 14:48 Home Medications ?Medication ?Instructions ?Recorded ?Confirmed ?Last Taken ?Type atenolol 100 mg tablet 100 mg PO DAILY 06/04/22 05/14/25 06/08/22 History lisinopril 20 mg tablet 20 mg PO DAILY 06/04/22 05/14/25 06/08/22 History nitroglycerin 0.4 mg sublingual 0.4 mg sublingual Q5M PRN Chest 06/04/22 05/14/25 Unknown History tablet Pain omeprazole 40 mg capsule,delayed 40 mg PO DAILY 06/04/22 05/14/25 06/07/22 History release allopurinol 100 mg tablet 100 mg PO DAILY 08/19/23 05/18/25 05/18/25 07:00 History cholecalciferol (vitamin D3) 125 250 mcg PO DAILY 08/19/23 05/14/25 Unknown History mcg (5,000 unit) tablet (Vitamin D3) indomethacin 50 mg capsule 75 mg PO DAILY PRN gout pain 08/19/23 05/14/25 Unknown History torsemide 20 mg tablet 20 mg PO BID 08/19/23 05/14/25 Unknown History aspirin 81 mg tablet,delayed 81 mg PO DAILY 05/14/25 05/14/25 Unknown History release evolocumab 140 mg/mL subcutaneous 140 mg subcut Q2W 05/14/25 05/14/25 Unknown History pen injector (Alex Noble) folic acid 1 mg tablet 1 mg PO DAILY 05/14/25 05/14/25 Unknown History hydrocortisone 10 mg tablet 10 mg PO BID 05/14/25 05/14/25 Unknown History tirzepatide 7.5 mg/0.5 mL 7.5 mg subcut QWEEK 05/14/25 05/14/25 Unknown History subcutaneous pen injector (Luisdestineydelphinereji) Exam Exam Date and Time: 05/18/25 0830 Height,Weight and Vital Signs: Height 5 ft 10.5 in Weight 86.183 kg Vital Signs Temperature 97.7 F 05/18/25 08:26 Pulse Rate 67 05/18/25 08:26 Respiratory Rate 16 05/18/25 08:26 Blood Pressure 128/57 L 05/18/25 08:26 Pulse Oximetry 100 05/18/25 08:26 Oxygen Delivery Method Room Air 05/18/25 08:26 Temperature 97.7 F 05/18/25 08:26 Pulse Rate 67 05/18/25 08:26 Respiratory Rate 16 05/18/25 08:26 Blood Pressure 128/57 L 05/18/25 08:26 Pulse Oximetry 100 05/18/25 08:26 Oxygen Delivery Method Room Air 05/18/25 08:26 Airway Mallampati Class: I TM Dist: >3cm Loose/Missing/Broken Teeth: Yes (edentulous) Heart: S1S2 Lungs: CTAB Assessment and Plan Assessment Anesthesia Assessment: Anesthesia Plan Discussed and Chart Reviewed Final Anesthetic Review Family History of Problems with Anesthesia: No History of Problems with Anesthesia: No NPO: Yes ASA Class: III Final Preanesthetic Review: No Changes in Pt Med Stat, Meds/Allgs Chart Reviewed, Consent Obtained/Reviewed and Anes Risks/Benef Reviewed Patient Risk: Intermediate Procedure Risk: Low Anesthetic Plan Anesthetic Plan: MAC: and Agree w/ Assess. and Plan Disposition: Standard PACU
--- NOTE | 2025-05-18 08:49 | MHC.SHP ---
Pre-Procedural Eval Section A - 24 Hr Update-Section A only Date of Service: 05/18/25 Section B - Complete if H&P > 30 days Chief Complaint: Secondary esophageal varices without bleeding Details of Present Illness: see H&P no changes Relevant Family History (Specify if Yes): No Relevant Social History: None Present Medications: see Short Stay Collaborative assessment Medical History: No relevant PMH History of Previous Operations: No relevant previous surgery Allergies: Allergies Allergy/AdvReac Type Severity Reaction Status Date / Time amlodipine Allergy Swelling Verified 05/14/25 14:48 doxycycline Allergy Unknown Verified 05/14/25 14:48 Review of Systems Sugical H&P ROS: Negative: Constitution, Cardiovascular, Respiratory, Neurological, Psychiatric, Hem-Onc, Allergic/Immunologic, Gastrointestinal, Genitourinary, Musculoskeletal, Integumentary, Endocrine and Eyes/Ears/Nose/Throat Exam Surgical H&P Exam: Normal: HEENT, Normal: Heart, Normal: Lungs, Normal: Extremities, Normal: Abdomen, Normal: Skin and Normal: Neurological Plan Diagnosis/Plan: Unchanged I have reviewed the history and physical and performed a pertinent physical examination on my patient. No changes have occurred unless specified. Time Spent With Patient Time: Total time managing care of this patient today ____ minutes.
[2025-05-18 08:51] LABS: Hematocrit 29.7 % (42.0-52.0); Hemoglobin 10.5 g/dl (14.0-18.0); Mean Corpuscular HGB Conc 35.4 g/dl (31.0-36.0); Mean Corpuscular Hemoglobin 34.7 pg (27.0-33.0); Mean Corpuscular Volume 98.0 fL (80.0-98.0); NRBC Abs Auto 0.000 X10*3/uL (0.0-0.012); NRBC Pct Auto 0.0 /100WBC (0.0-0.2); Red Blood Count 3.03 X10*6/uL (4.60-5.80); White Blood Count 3.4 X10*3/uL (4.8-10.8)
[2025-05-18 08:54] LABS: Platelet Count 64 X10*3/uL (160-400)
[2025-05-18 08:57] LABS: INTERNATIONAL NORM RATIO 1.2 (0.9-1.1); Prothrombin Time 13.8 SEC (10.9-12.4)
[2025-05-18 09:28] VITALS: BP 116/53; PULSE 70; RESP 16; TEMP 36.2; O2SAT 98
[2025-05-18 09:38] VITALS: BP 122/61; PULSE 67; RESP 16; TEMP 36.3; O2SAT 99
--- NOTE | 2025-05-18 10:12 | OP_ITS ---
DATE OF SERVICE: 05/18/2025 SURGEON: Paolo Jeffers MD INDICATIONS: Esophageal varices and colorectal cancer screening, PREOPERATIVE DIAGNOSIS: POSTOPERATIVE DIAGNOSIS: PROCEDURE PERFORMED: 1. Upper endoscopy with biopsy. 2. Colonoscopy to the terminal ileum. ESTIMATED BLOOD LOSS: COMPLICATIONS: ANESTHESIA: Monitored anesthesia care. ASSISTANTS: SPECIMENS: DESCRIPTION OF PROCEDURE: A history and physical was performed. The risks and benefits of the procedure were explained to the patient. Informed consent was obtained. The patient was placed in the left lateral decubitus position. The Olympus video gastroscope was introduced into the esophagus, stomach, and duodenum. Examination was performed. The scope was removed. He was repositioned for colonoscopy. A digital rectal exam was performed and was found to be normal. The Olympus pediatric video colonoscope was introduced into the rectum and advanced to the cecum. The cecum was identified by transillumination, palpation, and identification of ileocecal valve. Examination was performed. The scope was removed. He tolerated the procedure well and was returned to the recovery area in stable condition. FINDINGS: Upper endoscopy: 1. Esophagus: There were 3 chains of grade 2 varices extending from the EG junction, midway up the esophagus. There were no stigmata of recent hemorrhage. No therapy was performed. 2. Stomach: The stomach showed changes of portal hypertensive gastropathy. No bleeding was identified. 3. Duodenum: The duodenum appeared slightly scalloped. Biopsies were obtained to evaluate for celiac disease. Colonoscopy: The terminal ileum was normal. Visualized colonic mucosa was normal. The quality of the prep was good. There was diverticulosis scattered throughout the colon. No bleeding was identified. No polyps were seen. Retroflexed examination showed small internal hemorrhoids. IMPRESSION: 1. Nonbleeding grade 2 esophageal varices. 2. Portal hypertensive gastropathy. 3. Normal colonoscopy. RECOMMENDATION: 1. Follow up the biopsy results. 2. Repeat colonoscopy is recommended in 10 years for average-risk individuals. This is optional based on the patient's age. MD OSMANI Umana/GARRY / [id number]
== END 2025-05-18 10:04 | disposition home or self-care (01) ==
PROVIDERS: Nurse Practitioner; PCP Internal Medicine; Visit Provider Internal Medicine Gastroenterology
PROC: (CPT 43239; principal; 2025-05-18 08:20)
DX: Z12.11 Encounter for screening for malignant neoplasm of colon (principal); Z86.0101 Personal history of adenomatous and serrated colon polyps; K74.60 Unspecified cirrhosis of liver; I85.10 Secondary esophageal varices without bleeding; K76.6 Portal hypertension; K31.89 Other diseases of stomach and duodenum; K21.9 Gastro-esophageal reflux disease without esophagitis; E11.9 Type 2 diabetes mellitus without complications; I10 Essential (primary) hypertension; E78.5 Hyperlipidemia, unspecified; I48.91 Unspecified atrial fibrillation; Z79.82 Long term (current) use of aspirin; Z79.899 Other long term (current) drug therapy
CPT/HCPCS: 43239; G0105; 36415; 82947; 85027; 85610; 88305; J2704; J3010